=== PATIENT | male | born 2000 | race African-American/Black ===

== ENCOUNTER 2025-02-27 04:25 | Emergency (ER) | payer MEDICAID, OTHER ==
[~2025-02-27] VITALS: Ht 180.3 cm; Wt 73.2 kg
[2025-02-27] MEDS: METOCLOPRAMIDE HCL 5MG/ml INJ 2ml VIAL IV ONE (04:56)
[2025-02-27] MEDS: diphenhdrAMINE HCL 50 MG/1 ML VL IV ONE (04:56)
[2025-02-27 04:57] VITALS: PULSE 99; RESP 20; O2SAT 100
[2025-02-27] MEDS: SODIUM CHLORIDE 0.9% 1,000 ML IVB ONE (04:57)
--- NOTE | 2025-02-27 05:04 | ED.PDOC ---
GI ASSESSMENT HPI Comments 24-year-old male came to ER for abdominal pain. Patient states for the past 2 days he has been having intermittent episodes of sharp, cramping, epigastric abdominal pain, nonradiating associated multiple bouts of nausea, vomiting and loose nonbloody diarrhea. Patient's states upper extremities felt numb and t ingling. States he feels weak and fatigued. Chief Complaint: Abdominal Pain Time Seen by MD: 05:01 Reviewed Notes: Nurses Notes Allergies: Coded Allergies: NO KNOWN ALLERGIES (Unverified , 02/27/25) Home Meds Active Scripts Loperamide Hcl (Imodium) 2 Mg Cp, 2 MG PO Q6HP PRN, #30 CAP Prov:MANUELA JACKSON MD 02/27/25 Ondansetron HCl (Ondansetron Hydrochloride) 8 Mg Tab, 8 MG PO Q6HP PRN, #30 TAB Prov:MANUELA JACKSON MD 02/27/25 Information Source: Patient Mode of Arrival: Ambulatory Timing: Days Duration: Intermittent Prehospital treatment: None Quality: Aching, Cramping Vomitus: Watery Stool: Normal Severity: Moderate Recent: None Recent Hx of: None Pain Location: Epigastric Modifying Factors: Nothing Associated sign and symptoms: Nausea, Vomiting, Diarrhea, Abdominal Pain Past Medical History PAST MEDICAL HISTORY: Denies Surgical History: Denies all surgeries Family History Family History: Reviewed,noncontributory to illness Social History Smoker: Non-Smoker Alcohol: Occasionally Drugs: Marijuana Lives In: Home Constitutional: denies: chills, diaphoresis, fatigue, fever, malaise, sweats, weakness, others EENTM: denies: blurred vision, double vision, ear bleeding, ear discharge, ear drainage, ear pain, ear ringing, eye pain, eye redness, hearing loss, mouth pain, mouth swelling, nasal discharge, nose bleeding, nose congestion, nose pain, photophobia, tearing, throat pain, throat swelling, voice changes, others Respiratory: denies: cough, hemoptysis, orthopnea, SOB at rest, shortness of breath, SOB with excertion, stridor, wheezing, others Cardiovascular: denies: chest pain, dizzy spells, diaphoresis, Dyspnea on exertion, edema, irregular heart beat, left arm pain, lightheadedness, palpitations, PND, syncope, others Gastrointestinal: reports: abdominal pain, diarrhea, nausea, poor appetite, vomiting; denies: abdomen distended, blood streaked bowels, constipated, dysphagia, difficulty swallowing, hematemesis, melena, poor fluid intake, rectal bleeding, rectal pain, others Genitourinary: denies: burning, dysuria, flank pain, frequency, hematuria, incontinence, penile discharge, penile sore, pain, testicle pain, testicle swelling, urgency, others Neurological: reports: numbness, tingling; denies: dizziness, fainting, headache, left sided numbness, left sided weakness, paresthesia, pre-existing deficit, right sided numbness, right sided weakness, seizure, speech problems, tremors, weakness, others Musculoskeletal: denies: back pain, gout, joint pain, joint swelling, muscle pain, muscle stiffness, neck pain, others Integumetry: denies: bruises, change in color, change in hair/nails, dryness, laceration, lesions, lumps, rash, wounds, others Allergic/Immunocompromised: denies: Difficulty Healing, Frequent Infections, Hives, Itching, others Hematologic/Lymphatic: denies: anemia, blood clots, easy bleeding, easy bruising, swollen glands, others Endocrine: denies: excessive hunger, excessive sweating, excessive thirst, excessive urination, flushing, intolerance to cold, intolerance to heat, unexplained weight gain, unexplained weight loss, others Psychiatric: denies: anxiety, bipolar disorder, depression, hopeless, panic di sorder, schizophrenia, sleepless, suicidal, others Physical Exam General Appearance: No Apparent Distress, Normal HEENT: Normal ENT Inspection, Pharynx Normal, TMs Normal Neck: Full Range of Motion, Non-Tender, Normal, Normal Inspection Respiratory: Chest Non-Tender, Lungs Clear, No Accessory Muscle Use, No Respiratory Distress, Normal Breath Sounds Cardiovascular: No Edema, No JVD, No Murmur, No Gallop, Normal Peripheral Pulses, Regular Rate/Rhythm Breast Exam: Deferred Gastrointestinal: No Organomegaly, Non Tender, No Pulsatile Mass, Normal Bowel Sounds, Soft Genitalia: Deferred Pelvic: Deferred Rectal: Deferred Extremities: No calf tenderness, Normal capillary refill, Normal inspection, Normal range of motion, Non-tender, No pedal edema Musculoskeletal : Apperance: Normal Neurologic: Alert, sales promotion director II-XII nml as Tested, No Motor Deficits, Normal Affect, Normal Mood, No Sensory Deficits Cerebellar Function: Normal Reflexes: Normal Skin: Dry, Normal Color, Warm Lymphatic: No Adenopathy Was a procedure done? Was a procedure done?: No GI differential Dx Differential Diagnosis: Diverticular disease, Gastritis/PUD, Gastroenteritis, UTI, Urolithiasis, Dehydration, Electrolyte Imbalance X-Ray, Labs, Meds, VS Vital Signs Date Time Temp Pulse Resp B/P (MAP) Pulse Ox O2 Delivery O2 Flow Rate FiO2 02/27/25 09:37 98.4 73 16 148/87 (107) 100 98.4 02/27/25 07:20 98.1 84 19 147/117 (127) 100 98.1 02/27/25 04:57 99 20 100 Room Air* 0 21 02/27/25 04:57 98.8 99 20 123/101 (108) 100 98.8 02/27/25 04:33 98.8 99 20 123/101 (108) 100 98.8 Lab Test 02/27/25 08:05 02/27/25 04:53 Range/Units White Blood Count 13.3 H 16.9 H 4.4-10.8 10^3/uL Sodium Level 139 136 136-145 mmol/L Potassium Level 4.3 3.7 3.5-5.1 mmol/L Chloride Level 99 94 L 98-107 mmol/L Carbon Dioxide Level 30 26 20-31 mmol/L Anion Gap 10 16 H 5-15 Blood Urea Nitrogen 20 24 H 9-23 mg/dL Creatinine 1.28 1.58 H 0.700-1.30 mg/dL Glomerular Filtration Rate Calc 79 61 >90 mL/min BUN/Creatinine Ratio 15.6 15.2 10.0-20.0 Serum Glucose 120 H 140 H 74-106 mg/dL Calcium Level 10.6 H 12.7 H 8.7-10.4 mg/dL Total Bilirubin 1.4 H 1.6 H 0.2-1.0 mg/dL Aspartate Amino Transferase (AST) 29 36 13-40 U/L Alanine Aminotransferase (ALT) 25 31 7-40 U/L Alkaline Phosphatase 69 78 46-116 U/L Total Protein 8.4 H 9.7 H 5.7-8.2 g/dL Albumin 5.6 H > 6.0 H 3.2-4.8 g/dL Red Blood Count 6.26 H 4.5-5.90 10^6/uL Hemoglobin 18.7 H 13.5-17.5 g/dL Hematocrit 54.0 H 41.0-53.0 % Mean Corpuscular Volume 86.2 80.0-100.0 fL Mean Corpuscular Hemoglobin 29.8 28.0-32.0 pg Mean Corpuscular Hemoglobin Concent 34.6 32.0-36.0 g/dL Red Cell Distribution Width 13.9 11.8-14.3 % Platelet Count 297 140-450 10^3/uL Mean Platelet Volume 9.6 6.9-10.8 fL Neutrophils (%) (Auto) 84.2 H 37.0-80.0 % Lymphocytes (%) (Auto) 7.6 L 10.0-50.0 % Monocytes (%) (Auto) 7.9 0.0-12.0 % Eosinophils (%) (Auto) 0.0 0.0-7.0 % Basophils (%) (Auto) 0.3 0.0-2.0 % Neutrophils # (Auto) 14.2 H 1.6-8.6 10 ^3/uL Lymphocytes # (Auto) 1.3 0.4-5.4 10 ^3/uL Monocytes # (Auto) 1.3 0-1.3 10 ^3/uL Eosinophils # (Auto) 0 0-0.8 10 ^3/uL Basophils # (Auto) 0 0-0.2 10 ^3/uL Nucleated Red Blood Cells 0.3 % Magnesium Level 2.5 1.6-2.6 mg/dL Lipase 35 12-53 U/L Current Medications Medications (Trade) Dose Ordered Sig/Kolby Route Start Time Stop Time Status Last Admin Metoclopramide HCl (Reglan Injection) 10 mg ONCE ONCE IV 02/27/25 04:45 02/27/25 04:46 DC 02/27/25 04:56 Sodium Chloride 1,000 ml @ 1,000 mls/hr Q1H ONCE IVB 02/27/25 04:45 02/27/25 05:44 DC 02/27/25 04:57 Diphenhydramine HCl (Benadryl Injection) 25 mg ONCE ONCE IV 02/27/25 04:45 02/27/25 04:46 DC 02/27/25 04:56 Loperamide HCl (Imodium Capsule) 4 mg ONCE ONCE PO 02/27/25 06:00 02/27/25 06:01 DC 02/27/25 06:08 Sodium Chloride 1,000 ml @ 1,000 mls/hr Q1H ONCE IV 02/27/25 06:45 02/27/25 07:44 DC 02/27/25 06:47 Al Hydrox/Mg Hydrox/Simethicone (Maalox Plus) 30 ml ONCE ONCE PO 02/27/25 07:00 02/27/25 07:01 DC 02/27/25 07:00 PATIENT: EMIGDIO KAYACCT: [id number]: [id number] : 2000 LOC: ER ROOM / BED: / AGE / SEX: 24 / M ADM STATUS: REG ER SERVICE 0631 ORDERING PHYSICIAN: YAHAIRA KAISER MD PROCEDURE(s): ABDL - ABDOMEN LIMITED REASON: ro jacob, biliary duct stone ORDER NUMBER(s): [id number], ACCESSION NUMBER(s): [id number] CLINICAL INFORMATION: Rule out cholecystectomy. Rule out biliary duct stone. No other clinical information provided. TECHNIQUE: Grayscale sonographic imaging of the right upper quadrant of the abdomen was performed, assisted by color Doppler technique. COMPARISON: None FINDINGS: The gallbladder wall measures 2.7 mm in thickness, within normal limits. No stones are seen. Negative reported sonographic holly's sign. The common bile duct measures 3.5 mm in diameter, within normal limits. The liver is normal in size and echotexture. No focal lesions. The pancreas is partly obscured, likely by bowel gas. The visualized portions appear normal. The right kidney measures 10 cm. There is no hydronephrosis. Normal cortical echogenicity and cortical thickness. IMPRESSION: 1. No sonographic evidence of acute cholecystitis. No biliary ductal dilatation. 2. No acute findings are seen in the right upper quadrant of the abdomen. ATED BY: JAY MARTINEZ DO DICTATED DATE/TIME: 02/27/25 0810 SIGNED BY: JAY MARTINEZ DO SIGNED DATE/TIME: 02/27/25 0810 CC: 24-year-old male Presents here with nausea vomiting diarrhea. At this time bloo d work has been done which demonstrates significant abnormality likely from dehydration. Patient has a leukocytosis of 16.9 and elevated anion gap of 16 with evidence of acute kidney injury. , elevated bilirubin of 1.6. At this time I have given him 2 L of normal saline and repeat blood work has been done which demonstrates significant improvement in all. However he continues to have elevated bilirubin. Ultrasound of the right upper quadrant has been done with no evidence of cholecystitis or gallstones. Considered possible biliary duct stone given his elevated bilirubin however there was no stone. Multiple re-evaluations of the patient were made and patient was feeling better. However after the lab work returned, patient had eloped. While in the ER he was also given Reglan Benadryl and Imodium Maalox. X-Ray, Labs, Meds, VS Comment Patient placed on EDOBS @0640 for pending 2L of IV NS and repeat labs. Time of 1ST Reevaluation: 04:57 Reevaluation 1ST: Unchanged Patient Education/Counseling: Diagnosis, Treatment Family Education/Counseling: No Family Present Departure 1 Departure Time of Disposition: 13:00 Impression: Primary Impression: Gastroenteritis Additional Impressions: Leukocytosis Qualified Codes: D72.829 - Elevated white blood cell count, unspecified GAB (acute kidney injury) Hypercalcemia Hyperbilirubinemia Dehydration Eloped from emergency department Disposition: 07 LEFT AWOL/ELOPED Condition: Stable e-Prescriptions Loperamide Hcl (Imodium) 2 Mg Cp 2 MG PO Q6HP PRN, #30 CAP Prov: MANUELA JACKSON MD 02/27/25 Ondansetron HCl (Ondansetron Hydrochloride) 8 Mg Tab 8 MG PO Q6HP PRN, #30 TAB Prov: MANUELA JACKSON MD 02/27/25 Critical Care Note Critical Care Time?: No Stability Stability form required: No Heart Score Heart Score: Heart Score Response (Comments) Value History N/A 0 EKG N/A 0 Age N/A 0 Risk Factors N/A 0 Troponin N/A 0 Total 0 I personally scribed for MANUELA JACKSON MD ([email or web address]) on 02/27/25 at 05:04. Electronically submitted by Brian Garrett ([email or web address]). I personally scribed for MANUELA JACKSON MD ([email or web address]) on 02/27/25 at 06:57. Electronically submitted by Jermaine Tobin ([email or web address]). I personally scribed for MANUELA JACKSON MD ([email or web address]) on 02/27/25 at 13:01. Electronically submitted by Jermaine Tobin ([email or web address]). MANUELA JACKSON MD Feb 27, 2025 05:04 YAHAIRA KAISER MD Feb 27, 2025 16:16
[2025-02-27 05:53] LABS: Basophils # (auto) 0 10 ^3/uL (0-0.2); Eosinophils # (auto) 0 10 ^3/uL (0-0.8); Hemoglobin 18.7 g/dL (13.5-17.5); Lymphocytes # (auto) 1.3 10 ^3/uL (0.4-5.4); White Blood Cell 16.9 10^3/uL (4.4-10.8)
[2025-02-27 05:55] LABS: Basophils % (auto) 0.3 % (0.0-2.0); Lymphocytes % (auto) 7.6 % (10.0-50.0); Mean Corpuscular Hemoglobin 29.8 pg (28.0-32.0); Mean Corpuscular Hgb Conc. 34.6 g/dL (32.0-36.0); Mean Corpuscular Volume 86.2 fL (80.0-100.0); Monocytes # (auto) 1.3 10 ^3/uL (0-1.3); Monocytes % (auto) 7.9 % (0.0-12.0); Neutrophils # (auto) 14.2 10 ^3/uL (1.6-8.6); Neutrophils % (auto) 84.2 % (37.0-80.0); Nucleated Red Blood Cells % 0.3 %; Platelet Count (auto) 297 10^3/uL (140-450); Red Blood Cells 6.26 10^6/uL (4.5-5.90); Red Cell Distribution Width 13.9 % (11.8-14.3)
[2025-02-27] MEDS ORDERED: ONDA-180 PO (06:00)
[2025-02-27] MEDS ORDERED: LOPE2CAP16 PO (06:00)
[2025-02-27 06:02] LABS: Alanine Aminotransferase 31 U/L (7-40); Alkaline Phosphatase 78 U/L (46-116); Anion Gap 16 (5-15); Aspartate Aminotransferase 36 U/L (13-40); BUN/Creatinine Ratio 15.2 (10.0-20.0); Carbon Dioxide 26 mmol/L (20-31); Lipase 35 U/L (12-53); Magnesium 2.5 mg/dL (1.6-2.6); Potassium 3.7 mmol/L (3.5-5.1); Sodium 136 mmol/L (136-145)
[2025-02-27] MEDS: LOPERAMIDE HCL 2 MG CAP/TAB PO ONE (06:08)
[2025-02-27 06:12] LABS: Albumin > 6.0 g/dL (3.2-4.8); Bilirubin, Total 1.6 mg/dL (0.2-1.0); Blood Urea Nitrogen 24 mg/dL (9-23); Calcium 12.7 mg/dL (8.7-10.4); Chloride 94 mmol/L (98-107); Glucose 140 mg/dL (74-106); Total Protein 9.7 g/dL (5.7-8.2)
[2025-02-27] MEDS: SODIUM CHLORIDE 0.9% 1,000 ML IV ONE (06:47)
[2025-02-27] MEDS: MAALOX PLUS or MAALOX 30 ML PO ONE (07:00)
--- NOTE | 2025-02-27 08:12 | DVH ---
CLINICAL INFORMATION: Rule out cholecystectomy. Rule out biliary duct stone. No other clinical info rmation provided. TECHNIQUE: Grayscale sonographic imaging of the right upper quadrant of the abdomen was performed, a ssisted by color Doppler technique. COMPARISON: None FINDINGS: The gallbladder wall measures 2.7 mm in thickness, within normal limits. No stones are s een. Negative reported sonographic holly's sign. The common bile duct measures 3.5 mm in diameter, within normal limits. The liver is normal in size and echotexture. No focal lesions. The pancreas is partly obscured, likely by bowel gas. The visualized portions appear normal. The right kidney measures 10 cm. There is no hydronephrosis. Normal cortical echogenicity and ayse ical thickness. IMPRESSION: 1. No sonographic evidence of acute cholecystitis. No biliary ductal dilatation. 2. No acute findings are seen in the right upper quadrant of the abdomen.
[2025-02-27 08:46] LABS: Alanine Aminotransferase 25 U/L (7-40); Albumin 5.6 g/dL (3.2-4.8); Alkaline Phosphatase 69 U/L (46-116); Anion Gap 10 (5-15); Aspartate Aminotransferase 29 U/L (13-40); BUN/Creatinine Ratio 15.6 (10.0-20.0); Bilirubin, Total 1.4 mg/dL (0.2-1.0); Blood Urea Nitrogen 20 mg/dL (9-23); Calcium 10.6 mg/dL (8.7-10.4); Carbon Dioxide 30 mmol/L (20-31); Chloride 99 mmol/L (98-107); Glucose 120 mg/dL (74-106); Potassium 4.3 mmol/L (3.5-5.1); Sodium 139 mmol/L (136-145); Total Protein 8.4 g/dL (5.7-8.2)
[2025-02-27 09:37] VITALS: BP 148/87; PULSE 73; RESP 16; TEMP 98.4; O2SAT 100
[2025-02-27] MEDS ORDERED: SODIUM CHLORIDE 0.9% 1,000 ML IV ONE (10:00)
== END 2025-02-27 11:30 | disposition left against medical advice (07) ==
LOC: ER 04:25
DX: K52.9 Noninfective gastroenteritis and colitis, unspecified (principal); N17.9 Acute kidney failure, unspecified; E83.52 Hypercalcemia; E80.6 Other disorders of bilirubin metabolism; E86.0 Dehydration
CPT/HCPCS: 36415; 76705; 80053; 83690; 83735; 85025; 85048; 96361; 96374; 96375; 99285; J1200; J2765; J7030